=== PATIENT | female | born 1935 | race Caucasian/White ===

== ENCOUNTER 2021-11-15 12:43 | Inpatient (IN) | payer MEDICARE, OTHER ==
[2021-11-15] MEDS ORDERED: levETIRAcetam 500 MG/5 ML VIAL ONE (12:59)
[2021-11-15 13:00] LABS: Hemoglobin 10.8 g/dL (12.0-16.0); Mean Corpuscular HGB CONC 31.5 g/dL (32.0-36.0); Mean Corpuscular Hemoglobin 28.2 pg (27.0-31.0); Mean Corpuscular Volume 89.4 fL (78.0-98.0); Mean Platelet Volume 9.5 fL (7.4-10.4); Platelet Count 236 thou/uL (130-400); RBC Distribution Width 15.8 % (11.5-14.5); Red Blood Cell (RBC) Count 3.83 mill/uL (4.20-5.40); White Blood Cell (WBC) Count 20.5 thou/uL (4.8-10.8)
[2021-11-15 13:05] LABS: INR-International Normal Ratio 1.1; Prothrombin Time 14.2 sec (12.0-14.7)
[2021-11-15 13:21] LABS: Anisocytosis SLIGHT = 6-15 cells (100X) (0-5/hpf); Band 26 % (5-11); Eosinophils 2 % (0-10); Lymphocytes 6 % (21-51); MDiff Complete? YES; Monocytes 2 % (0-10); Neutrophil 64 % (42-75); Platelet Morphology Comment Appears Adequate; Polychromasia SLIGHT = 2-3 cells (100X) (0-2/hpf)
[2021-11-15 13:22] LABS: ALT (SGPT) 9 U/L (8-55); AST (SGOT) 6 U/L (5-34); Albumin 3.7 g/dL (3.4-4.8); Alkaline Phosphatase 102 U/L (40-110); Anion Gap 17 mmol/L (10-20); BUN (Urea Nitrogen) 41 mg/dL (9.8-20.1); Bilirubin, Total 0.2 mg/dL (0.2-1.2); CK (CPK) 12 U/L (29-168); Calc. Creatinine Clearance 0 mL/min (70-130); Calcium 10.3 mg/dL (7.8-10.44); Carbon Dioxide 16 mmol/L (23-31); Chloride 114 mmol/L (98-107); Estimated GFR 33; Globulin 2.9 g/dL (2.4-3.5); Glucose 178 mg/dL (83-110); Magnesium 2.6 mg/dL (1.6-2.6); Potassium 3.9 mmol/L (3.5-5.1); Protein, Total 6.6 g/dL (5.8-8.1); Sodium 143 mmol/L (136-145)
[2021-11-15 13:51] LABS: Bacteria/HPF 2+ HPF (None Seen); Bilirubin Negative (Negative); Blood, Urine 2+ (Negative); Clarity Extra Turbid (Clear); Glucose, Urine (Dipstick) Greater than 1000 mg/dL (Negative); Ketone, Urine Negative (Negative); Leukocyte 500 Leu/uL (Negative); Nitrite 1+ (Negative); Protein, Urine (Dipstick) 100 mg/dL (Neg-Trace); Specific Gravity, Urine 1.014 (1.002-1.036); Squamous Epithelial 0-3 HPF (0-3); Urobilinogen Normal mg/dL (Less than 2); pH, Urine 6.5 (5.0-9.0)
[2021-11-15 13:52] LABS: Yeast-Budding Rare HPF (None Seen)
[2021-11-15 13:53] LABS: WBC/HPF Greater Than 50 HPF (0-3)
[2021-11-15] MEDS ORDERED: Cefepime 2 GM VIAL ONE (14:09)
[2021-11-15] MEDS ORDERED: Vancomycin 1 GM/200 ML BAG ONE (15:11)
[2021-11-15] MEDS ORDERED: Naloxone HCl 0.4 mg/ml Vial ONE ×2 (15:37→15:46)
[2021-11-15 16:11] LABS: Actual Bicarbonate (HCO3a) 15.8 mEq/L (22-28); Analyzer IN Cardio ER; Base Excess (BEa) -10.2 mEq/L (-2.0 to +3.0); CO2 Tension 35.3 mmHg (35.0-45.0); Calcium, Ionized (arterial) 1.39 mmol/L (1.12-1.30); Carboxyhemoglobin (COHb) 0.6 gm% (0.0-3.0); Hemoglobin (Hb) 9.9 g/dL (12.0-16.0); O2 Tension (PaO2), arterial 84.2 mmHg (> 60.0); Potassium - ABG Lab 3.47 mmol/L (3.70-5.30); pH, Arterial 7.27 (7.35-7.45)
[2021-11-15 16:24] LABS: Acetaminophen Less than 10.0 mcg/mL (10.0-30.0); Alcohol Less than 10 mg/dL (Less than 10); Salicylate Less than 8.0 mg/dL (15.0-30.0)
[2021-11-15 16:31] LABS: Puncture Site RRA
[2021-11-15 16:39] LABS: Amphetamine Not Detected (NotDetected); Barbiturates Screen Not Detected (NotDetected); Benzodiazepine Screen Not Detected (NotDetected); Cocaine Metabolite Screen Not Detected (NotDetected); Methadone Not Detected (NotDetected); Methamphetamine Not Detected (NotDetected); Opiate Screen Not Detected (NotDetected); Oxycodone Screen Not Detected (NotDetected); Phencyclidine (PCP) Not Detected (NotDetected); THC/Cannabinoid Screen Not Detected (NotDetected); Tricyclic Screen Not Detected (NotDetected)
[2021-11-15] MEDS ORDERED: Ondansetron PF 4 MG/2 ML Vial IVP PRN (17:15)
[2021-11-15 17:35] LABS: Troponin I Less than 0.010 ng/mL (< 0.028)
[2021-11-15 21:16] LABS: Troponin I Less than 0.010 ng/mL (< 0.028)
[2021-11-15] MEDS: Sodium Chloride 0.9% 1,000 ML IV SCH (21:49)
[2021-11-15] MEDS: Famotidine/PF 20 mg/2ml Vial SLOW IVP SCH (21:49)
[2021-11-16] MEDS: Cefepime 1 GM in Sodium Chloride 0.9% 100 ML IVPB SCH ×2 (01:58→14:16)
[2021-11-16 05:47] LABS: #Eosinphils 0.2 thou/uL (0.0-0.7); #Lymphocytes 0.7 thou/uL (1.20-3.40); #Monocytes 0.4 thou/uL (0.11-0.59); #Neutrophils 12.9 thou/uL (1.40-6.50); %Basophils 0.1 % (0.0-1.0); %Eosinophils 1.2 % (0.0-10.0); %Lymphocytes 4.6 % (21.0-51.0); %Monocytes 2.8 % (0.0-10.0); %Neutrophils 91.2 % (42.0-75.0); Hemoglobin 11.5 g/dL (12.0-16.0); Mean Corpuscular HGB CONC 29.1 g/dL (32.0-36.0); Mean Corpuscular Hemoglobin 26.8 pg (27.0-31.0); Mean Corpuscular Volume 92.2 fL (78.0-98.0); Mean Platelet Volume 10.2 fL (7.4-10.4); Platelet Count 166 thou/uL (130-400); RBC Distribution Width 16.3 % (11.5-14.5); Red Blood Cell (RBC) Count 4.28 mill/uL (4.20-5.40); White Blood Cell (WBC) Count 14.1 thou/uL (4.8-10.8)
[2021-11-16 06:01] LABS: Anion Gap 17 mmol/L (10-20); BUN (Urea Nitrogen) 28 mg/dL (9.8-20.1); Calc. Creatinine Clearance 37 mL/min (70-130); Carbon Dioxide 12 mmol/L (23-31); Chloride 120 mmol/L (98-107); Estimated GFR 55; Glucose 164 mg/dL (83-110); Potassium 4.6 mmol/L (3.5-5.1); Sodium 144 mmol/L (136-145)
[2021-11-16] MEDS: Enoxaparin Sodium 30 MG/0.3 ML SYRINGE SC SCH (09:31)
[2021-11-16] MEDS: Sodium Chloride 0.9% 1,000 ML IV SCH ×2 (09:31→22:31)
[2021-11-16] MEDS ORDERED: Losartan 25 MG TAB PO SCH (12:15)
[2021-11-16] MEDS: Famotidine/PF 20 mg/2ml Vial SLOW IVP SCH (22:31)
[2021-11-17] MEDS: Cefepime 1 GM in Sodium Chloride 0.9% 100 ML IVPB SCH ×2 (02:11→13:54)
[2021-11-17 06:23] LABS: Hemoglobin 11.5 g/dL (12.0-16.0); Mean Corpuscular HGB CONC 30.4 g/dL (32.0-36.0); Mean Corpuscular Hemoglobin 27.3 pg (27.0-31.0); Mean Corpuscular Volume 89.6 fL (78.0-98.0); Mean Platelet Volume 9.4 fL (7.4-10.4); Platelet Count 261 thou/uL (130-400); RBC Distribution Width 15.7 % (11.5-14.5); Red Blood Cell (RBC) Count 4.23 mill/uL (4.20-5.40); White Blood Cell (WBC) Count 16.4 thou/uL (4.8-10.8)
[2021-11-17 06:34] LABS: ALT (SGPT) 14 U/L (8-55); AST (SGOT) 15 U/L (5-34); Albumin 3.6 g/dL (3.4-4.8); Alkaline Phosphatase 109 U/L (40-110); Anion Gap 20 mmol/L (10-20); BUN (Urea Nitrogen) 17 mg/dL (9.8-20.1); Bilirubin, Total 0.3 mg/dL (0.2-1.2); Calc. Creatinine Clearance 46 mL/min (70-130); Carbon Dioxide 11 mmol/L (23-31); Chloride 114 mmol/L (98-107); Estimated GFR 70; Globulin 3.9 g/dL (2.4-3.5); Glucose 117 mg/dL (83-110); Potassium 3.6 mmol/L (3.5-5.1); Protein, Total 7.5 g/dL (5.8-8.1); Sodium 141 mmol/L (136-145)
[2021-11-17 07:57] LABS: #Eosinphils 0.1 thou/uL (0.0-0.7); #Lymphocytes 1.1 thou/uL (1.20-3.40); #Monocytes 0.6 thou/uL (0.11-0.59); #Neutrophils 14.5 thou/uL (1.40-6.50); %Basophils 0.3 % (0.0-1.0); %Eosinophils 0.7 % (0.0-10.0); %Lymphocytes 6.6 % (21.0-51.0); %Monocytes 3.7 % (0.0-10.0); %Neutrophils 88.7 % (42.0-75.0); Band 6 % (5-11); Eosinophils 1 % (0-10); Large Platelets SLIGHT; Lymphocytes 6 % (21-51); MDiff Complete? YES; Monocytes 6 % (0-10); Neutrophil 81 % (42-75); Platelet Morphology Comment Appears Adequate; Polychromasia SLIGHT = 2-3 cells (100X) (0-2/hpf)
[2021-11-17] MEDS ORDERED: Atorvastatin Calcium 20 MG TAB PO SCH (09:00)
[2021-11-17] MEDS ORDERED: Enoxaparin Sodium 40 MG/0.4 ML SYRINGE SC SCH (09:30)
[2021-11-17] MEDS: Losartan 25 MG TAB PO SCH (10:09)
[2021-11-17] MEDS: Empagliflozin 25 MG TAB PO SCH (10:11)
[2021-11-17] MEDS: Enoxaparin Sodium 30 MG/0.3 ML SYRINGE SC SCH (13:57)
[2021-11-17] MEDS: Sodium Chloride 0.9% 1,000 ML IV SCH (15:00)
[2021-11-17] MEDS ORDERED: Melatonin 3 MG TAB PO PRN (20:00)
[2021-11-17] MEDS: Melatonin 3 MG TAB PO PRN (22:19)
[2021-11-17] MEDS: Atorvastatin Calcium 20 MG TAB PO SCH (22:20)
[2021-11-17] MEDS: Famotidine/PF 20 mg/2ml Vial SLOW IVP SCH (22:20)
[2021-11-18] MEDS: Cefepime 1 GM in Sodium Chloride 0.9% 100 ML IVPB SCH ×2 (02:08→14:01)
[2021-11-18] MEDS: Sodium Chloride 0.9% 1,000 ML IV SCH (06:17)
[2021-11-18 07:29] LABS: Hemoglobin 11.3 g/dL (12.0-16.0); Mean Corpuscular HGB CONC 29.6 g/dL (32.0-36.0); Mean Corpuscular Hemoglobin 26.7 pg (27.0-31.0); Mean Corpuscular Volume 90.4 fL (78.0-98.0); Mean Platelet Volume 9.5 fL (7.4-10.4); Platelet Count 308 thou/uL (130-400); RBC Distribution Width 15.7 % (11.5-14.5); Red Blood Cell (RBC) Count 4.23 mill/uL (4.20-5.40); White Blood Cell (WBC) Count 15.1 thou/uL (4.8-10.8)
[2021-11-18] MEDS: Empagliflozin 25 MG TAB PO SCH (07:51)
[2021-11-18] MEDS: Enoxaparin Sodium 40 MG/0.4 ML SYRINGE SC SCH (07:51)
[2021-11-18] MEDS: Losartan 25 MG TAB PO SCH (07:51)
[2021-11-18 07:57] LABS: Anion Gap 22 mmol/L (10-20); BUN (Urea Nitrogen) 15 mg/dL (9.8-20.1); Calc. Creatinine Clearance 51 mL/min (70-130); Calcium 10.3 mg/dL (7.8-10.44); Chloride 114 mmol/L (98-107); Estimated GFR 85; Glucose 130 mg/dL (83-110); Magnesium 2.2 mg/dL (1.6-2.6); Potassium 3.6 mmol/L (3.5-5.1); Sodium 141 mmol/L (136-145)
[2021-11-18 08:03] LABS: Carbon Dioxide 9 mmol/L (23-31)
[2021-11-18 08:25] LABS: Band 4 % (5-11); Lymphocytes 10 % (21-51); MDiff Complete? YES; Monocytes 5 % (0-10); Neutrophil 81 % (42-75); Platelet Morphology Comment Appears Adequate; Polychromasia SLIGHT = 2-3 cells (100X) (0-2/hpf)
[2021-11-18] MEDS: Sodium Bicarb 50 MEQ/50 ML VIAL IVP SCH ×3 (14:01→21:25)
[2021-11-18] MEDS: Mirtazapine 30 MG TAB PO PRN (21:24)
[2021-11-18] MEDS: Melatonin 3 MG TAB PO PRN (21:24)
[2021-11-18] MEDS: Atorvastatin Calcium 20 MG TAB PO SCH (21:24)
[2021-11-18] MEDS: Famotidine/PF 20 mg/2ml Vial SLOW IVP SCH (21:24)
[2021-11-18] MEDS ORDERED: traZODone HCl 50 MG TAB PO SCH (23:15)
[2021-11-19] MEDS: Cefepime 1 GM in Sodium Chloride 0.9% 100 ML IVPB SCH ×2 (03:24→14:16)
[2021-11-19 04:13] LABS: #Eosinphils 0.1 thou/uL (0.0-0.7); #Lymphocytes 1.4 thou/uL (1.20-3.40); #Monocytes 0.7 thou/uL (0.11-0.59); #Neutrophils 11.5 thou/uL (1.40-6.50); %Basophils 0.3 % (0.0-1.0); %Eosinophils 1.1 % (0.0-10.0); %Lymphocytes 9.9 % (21.0-51.0); %Monocytes 5.2 % (0.0-10.0); %Neutrophils 83.5 % (42.0-75.0); Hemoglobin 11.5 g/dL (12.0-16.0); Mean Corpuscular HGB CONC 31.5 g/dL (32.0-36.0); Mean Corpuscular Hemoglobin 27.7 pg (27.0-31.0); Mean Platelet Volume 9.4 fL (7.4-10.4); Platelet Count 374 thou/uL (130-400); RBC Distribution Width 15.7 % (11.5-14.5); Red Blood Cell (RBC) Count 4.14 mill/uL (4.20-5.40); White Blood Cell (WBC) Count 13.7 thou/uL (4.8-10.8)
[2021-11-19 04:40] LABS: ALT (SGPT) 34 U/L (8-55); AST (SGOT) 27 U/L (5-34); Albumin 3.8 g/dL (3.4-4.8); Alkaline Phosphatase 116 U/L (40-110); Anion Gap 23 mmol/L (10-20); BUN (Urea Nitrogen) 15 mg/dL (9.8-20.1); Bilirubin, Total 0.3 mg/dL (0.2-1.2); Calc. Creatinine Clearance 48 mL/min (70-130); Calcium 10.3 mg/dL (7.8-10.44); Carbon Dioxide 15 mmol/L (23-31); Chloride 108 mmol/L (98-107); Estimated GFR 78; Globulin 3.7 g/dL (2.4-3.5); Glucose 132 mg/dL (83-110); Magnesium 2.3 mg/dL (1.6-2.6); Protein, Total 7.5 g/dL (5.8-8.1); Sodium 143 mmol/L (136-145)
[2021-11-19 04:53] LABS: Potassium 2.8 mmol/L (3.5-5.1)
[2021-11-19] MEDS ORDERED: Electrolyte Replacement Protocol 1 EACH FS SCH (05:00)
[2021-11-19] MEDS: Potassium Chloride 20 MEQ in Premix Bag 1 BAG IVPB SCH ×2 (06:26→10:18)
[2021-11-19] MEDS: Losartan 25 MG TAB PO SCH (10:17)
[2021-11-19] MEDS: Empagliflozin 25 MG TAB PO SCH (10:17)
[2021-11-19] MEDS: Enoxaparin Sodium 40 MG/0.4 ML SYRINGE SC SCH (10:18)
[2021-11-19] MEDS ORDERED: Diltiazem HCl SR 60 mg Capsule PO SCH (12:30)
[2021-11-19] MEDS ORDERED: Potassium Chloride 20 MEQ TAB PO SCH (12:30)
[2021-11-19] MEDS ORDERED: Sodium Bicarb 50 MEQ/50 ML VIAL IVP SCH (12:30)
[2021-11-19] MEDS: Sodium Bicarb 50 MEQ/50 ML Abboject 8.4% SYRINGE IVP SCH ×3 (14:04→21:11)
[2021-11-19] MEDS: D5W-AA 4.25% with LYTES 1,000 ML IV SCH (15:20)
[2021-11-19 17:42] LABS: Magnesium 2.2 mg/dL (1.6-2.6); Potassium 3.6 mmol/L (3.5-5.1)
[2021-11-19] MEDS: Famotidine/PF 20 mg/2ml Vial SLOW IVP SCH ×2 (21:04→21:11)
[2021-11-19] MEDS: Atorvastatin Calcium 20 MG TAB PO SCH (21:12)
[2021-11-19] MEDS: Melatonin 3 MG TAB PO PRN (21:12)
[2021-11-19] MEDS: Mirtazapine 30 MG TAB PO PRN (21:12)
[2021-11-19] MEDS ORDERED: hydrOXYzine 25 MG TAB PO SCH (23:15)
[2021-11-20] MEDS: Cefepime 1 GM in Sodium Chloride 0.9% 100 ML IVPB SCH ×2 (01:26→16:21)
[2021-11-20] MEDS: D5W-AA 4.25% with LYTES 1,000 ML IV SCH ×2 (02:12→14:30)
[2021-11-20 04:37] LABS: #Eosinphils 0.1 thou/uL (0.0-0.7); #Lymphocytes 1.2 thou/uL (1.20-3.40); #Monocytes 1.1 thou/uL (0.11-0.59); #Neutrophils 10.7 thou/uL (1.40-6.50); %Basophils 0.2 % (0.0-1.0); %Lymphocytes 8.9 % (21.0-51.0); %Monocytes 8.1 % (0.0-10.0); %Neutrophils 81.9 % (42.0-75.0); Hemoglobin 10.2 g/dL (12.0-16.0); Mean Corpuscular HGB CONC 31.1 g/dL (32.0-36.0); Mean Corpuscular Hemoglobin 27.2 pg (27.0-31.0); Mean Corpuscular Volume 87.5 fL (78.0-98.0); Mean Platelet Volume 9.3 fL (7.4-10.4); Platelet Count 356 thou/uL (130-400); RBC Distribution Width 15.8 % (11.5-14.5); Red Blood Cell (RBC) Count 3.75 mill/uL (4.20-5.40); White Blood Cell (WBC) Count 13.1 thou/uL (4.8-10.8)
[2021-11-20 04:56] LABS: ALT (SGPT) 27 U/L (8-55); AST (SGOT) 14 U/L (5-34); Albumin 3.5 g/dL (3.4-4.8); Alkaline Phosphatase 92 U/L (40-110); Anion Gap 15 mmol/L (10-20); BUN (Urea Nitrogen) 23 mg/dL (9.8-20.1); Bilirubin, Total 0.2 mg/dL (0.2-1.2); Calc. Creatinine Clearance 48 mL/min (70-130); Calcium 10.2 mg/dL (7.8-10.44); Carbon Dioxide 24 mmol/L (23-31); Chloride 110 mmol/L (98-107); Estimated GFR 76; Globulin 3.2 g/dL (2.4-3.5); Glucose 240 mg/dL (83-110); Magnesium 2.3 mg/dL (1.6-2.6); Phosphorus 2.1 mg/dL (2.3-4.7); Potassium 3.6 mmol/L (3.5-5.1); Protein, Total 6.7 g/dL (5.8-8.1); Sodium 145 mmol/L (136-145)
[2021-11-20] MEDS ORDERED: Potassium Chloride 20 MEQ TAB PO SCH (08:00)
[2021-11-20] MEDS: Losartan 25 MG TAB PO SCH (10:47)
[2021-11-20] MEDS: Enoxaparin Sodium 40 MG/0.4 ML SYRINGE SC SCH (10:48)
[2021-11-20] MEDS: Empagliflozin 25 MG TAB PO SCH (10:48)
[2021-11-20] MEDS: Diltiazem HCl CD 300 mg Capsule PO SCH (10:50)
[2021-11-20 18:21] LABS: Bilirubin Negative (Negative); Blood, Urine 3+ (Negative); Clarity Turbid (Clear); Glucose, Urine (Dipstick) Greater than 1000 mg/dL (Negative); Ketone, Urine 10 mg/dL (Negative); Leukocyte 500 Leu/uL (Negative); Nitrite Negative (Negative); Protein, Urine (Dipstick) 70 mg/dL (Neg-Trace); RBC/HPF Greater than 50 HPF (0-3); Specific Gravity, Urine 1.025 (1.002-1.036); Squamous Epithelial 0-3 HPF (0-3); Urobilinogen Normal mg/dL (Less than 2); WBC/HPF Greater than 50 HPF (0-3)
[2021-11-20 18:23] LABS: Bacteria/HPF Rare-Few HPF (None Seen); Transitional Epithelial 0-3 HPF (None Seen)
[2021-11-20 18:24] LABS: Urine Culture Reflex Yes Yes
[2021-11-20] MEDS: Famotidine/PF 20 mg/2ml Vial SLOW IVP SCH ×2 (20:22→20:23)
[2021-11-20] MEDS: Atorvastatin Calcium 20 MG TAB PO SCH (20:31)
[2021-11-20] MEDS ORDERED: hydrOXYzine 25 MG TAB PO SCH (21:10)
[2021-11-20] MEDS ORDERED: OLANZapine 10 MG VIAL IM SCH (21:30)
[2021-11-21] MEDS: Cefepime 1 GM in Sodium Chloride 0.9% 100 ML IVPB SCH ×2 (02:21→15:20)
[2021-11-21] MEDS: D5W-AA 4.25% with LYTES 1,000 ML IV SCH ×2 (02:21→15:21)
[2021-11-21 04:25] LABS: #Eosinphils 0.1 thou/uL (0.0-0.7); #Lymphocytes 1.1 thou/uL (1.20-3.40); #Monocytes 0.9 thou/uL (0.11-0.59); %Basophils 0.2 % (0.0-1.0); %Eosinophils 0.5 % (0.0-10.0); %Lymphocytes 7.8 % (21.0-51.0); %Monocytes 6.5 % (0.0-10.0); Hemoglobin 9.7 g/dL (12.0-16.0); Mean Corpuscular HGB CONC 31.8 g/dL (32.0-36.0); Mean Corpuscular Hemoglobin 27.8 pg (27.0-31.0); Mean Corpuscular Volume 87.3 fL (78.0-98.0); Mean Platelet Volume 9.3 fL (7.4-10.4); Platelet Count 347 thou/uL (130-400); RBC Distribution Width 16.1 % (11.5-14.5); Red Blood Cell (RBC) Count 3.51 mill/uL (4.20-5.40); White Blood Cell (WBC) Count 14.1 thou/uL (4.8-10.8)
[2021-11-21 04:47] LABS: Anion Gap 15 mmol/L (10-20); BUN (Urea Nitrogen) 33 mg/dL (9.8-20.1); Calc. Creatinine Clearance 44 mL/min (70-130); Calcium 10.2 mg/dL (7.8-10.44); Carbon Dioxide 22 mmol/L (23-31); Chloride 114 mmol/L (98-107); Estimated GFR 68; Glucose 243 mg/dL (83-110); Magnesium 2.7 mg/dL (1.6-2.6); Potassium 4.1 mmol/L (3.5-5.1); Sodium 147 mmol/L (136-145)
[2021-11-21] MEDS ORDERED: Iopamidol-370 76% 500 ML 1 ML ONE (09:52)
[2021-11-21] MEDS: Losartan 25 MG TAB PO SCH (09:57)
[2021-11-21] MEDS: Diltiazem HCl CD 300 mg Capsule PO SCH (09:57)
[2021-11-21] MEDS: Empagliflozin 25 MG TAB PO SCH (09:57)
[2021-11-21] MEDS: Enoxaparin Sodium 40 MG/0.4 ML SYRINGE SC SCH (10:00)
[2021-11-21] MEDS ORDERED: Meropenem 500 MG in Sodium Chloride 0.9% 100 ML IVPB SCH (16:00)
[2021-11-21] MEDS ORDERED: Meropenem 1 GM in Sodium Chloride 0.9% 100 ML IVPB SCH (16:00)
[2021-11-21] MEDS: Dextrose 5% in Water 1,000 ML IV SCH (17:51)
[2021-11-21] MEDS: Atorvastatin Calcium 20 MG TAB PO SCH (21:42)
[2021-11-21] MEDS: Meropenem 1 GM in Sodium Chloride 0.9% 100 ML IVPB SCH (23:48)
[2021-11-22 04:47] LABS: #Eosinphils 0.1 thou/uL (0.0-0.7); #Monocytes 0.9 thou/uL (0.11-0.59); %Basophils 0.2 % (0.0-1.0); %Eosinophils 1.2 % (0.0-10.0); %Lymphocytes 7.9 % (21.0-51.0); %Monocytes 7.3 % (0.0-10.0); %Neutrophils 83.3 % (42.0-75.0); Hemoglobin 9.7 g/dL (12.0-16.0); Mean Corpuscular HGB CONC 31.2 g/dL (32.0-36.0); Mean Corpuscular Hemoglobin 27.5 pg (27.0-31.0); Mean Corpuscular Volume 88.3 fL (78.0-98.0); Mean Platelet Volume 9.3 fL (7.4-10.4); Platelet Count 345 thou/uL (130-400); RBC Distribution Width 16.2 % (11.5-14.5); Red Blood Cell (RBC) Count 3.51 mill/uL (4.20-5.40)
[2021-11-22 05:02] LABS: ALT (SGPT) 20 U/L (8-55); AST (SGOT) 11 U/L (5-34); Albumin 3.3 g/dL (3.4-4.8); Alkaline Phosphatase 74 U/L (40-110); Anion Gap 14 mmol/L (10-20); BUN (Urea Nitrogen) 31 mg/dL (9.8-20.1); Bilirubin, Total 0.2 mg/dL (0.2-1.2); Calc. Creatinine Clearance 45 mL/min (70-130); Carbon Dioxide 21 mmol/L (23-31); Chloride 112 mmol/L (98-107); Estimated GFR 69; Globulin 3.1 g/dL (2.4-3.5); Glucose 306 mg/dL (83-110); Magnesium 2.6 mg/dL (1.6-2.6); Phosphorus 3.3 mg/dL (2.3-4.7); Potassium 3.8 mmol/L (3.5-5.1); Protein, Total 6.4 g/dL (5.8-8.1); Sodium 143 mmol/L (136-145)
[2021-11-22] MEDS: Dextrose 5% in Water 1,000 ML IV SCH ×3 (07:24→20:39)
[2021-11-22] MEDS: Enoxaparin Sodium 40 MG/0.4 ML SYRINGE SC SCH (11:08)
[2021-11-22] MEDS: Empagliflozin 25 MG TAB PO SCH (12:00)
[2021-11-22] MEDS: Losartan 25 MG TAB PO SCH (12:00)
[2021-11-22] MEDS: Diltiazem HCl CD 300 mg Capsule PO SCH (12:00)
[2021-11-22] MEDS: oxyCODONE 5 MG TAB PO SCH ×2 (12:00→20:28)
[2021-11-22] MEDS: Meropenem 1 GM in Sodium Chloride 0.9% 100 ML IVPB SCH ×2 (12:37→23:28)
[2021-11-22] MEDS: D5W-AA 4.25% with LYTES 1,000 ML IV SCH (12:46)
[2021-11-22] MEDS: Atorvastatin Calcium 20 MG TAB PO SCH (20:27)
[2021-11-23 04:20] LABS: #Eosinphils 0.4 thou/uL (0.0-0.7); #Lymphocytes 1.2 thou/uL (1.20-3.40); #Monocytes 0.8 thou/uL (0.11-0.59); #Neutrophils 9.8 thou/uL (1.40-6.50); %Basophils 0.2 % (0.0-1.0); %Eosinophils 3.3 % (0.0-10.0); %Lymphocytes 10.1 % (21.0-51.0); %Monocytes 6.3 % (0.0-10.0); %Neutrophils 80.1 % (42.0-75.0); Hemoglobin 10.3 g/dL (12.0-16.0); Mean Corpuscular HGB CONC 30.9 g/dL (32.0-36.0); Mean Corpuscular Hemoglobin 27.4 pg (27.0-31.0); Mean Corpuscular Volume 88.7 fL (78.0-98.0); Mean Platelet Volume 9.4 fL (7.4-10.4); Platelet Count 348 thou/uL (130-400); RBC Distribution Width 16.1 % (11.5-14.5); Red Blood Cell (RBC) Count 3.75 mill/uL (4.20-5.40); White Blood Cell (WBC) Count 12.3 thou/uL (4.8-10.8)
[2021-11-23 04:36] LABS: Anion Gap 14 mmol/L (10-20); BUN (Urea Nitrogen) 25 mg/dL (9.8-20.1); Calc. Creatinine Clearance 47 mL/min (70-130); Calcium 9.7 mg/dL (7.8-10.44); Carbon Dioxide 20 mmol/L (23-31); Chloride 105 mmol/L (98-107); Estimated GFR 77; Glucose 318 mg/dL (83-110); Magnesium 2.2 mg/dL (1.6-2.6); Phosphorus 2.1 mg/dL (2.3-4.7); Potassium 3.9 mmol/L (3.5-5.1); Sodium 135 mmol/L (136-145)
[2021-11-23] MEDS ORDERED: Dextrose 50% Abboject 50 ML SYRINGE SLOW IVP PRN (07:42)
[2021-11-23] MEDS ORDERED: Dextrose 5% in Water 1,000 ML IV PRN (07:42)
[2021-11-23] MEDS: Enoxaparin Sodium 40 MG/0.4 ML SYRINGE SC SCH (09:18)
[2021-11-23] MEDS: HumaLOG 300 UNITS/3 ML VIAL SC PRN ×2 (09:30→17:28)
[2021-11-23] MEDS: D5W-AA 4.25% with LYTES 1,000 ML IV SCH (10:53)
[2021-11-23] MEDS ORDERED: Metoprolol Tartrate 5 MG/5 ML VIAL IVP PRN (12:01)
[2021-11-23] MEDS: Losartan 25 MG TAB PO SCH (13:39)
[2021-11-23] MEDS: Diltiazem HCl CD 300 mg Capsule PO SCH (13:39)
[2021-11-23] MEDS: Empagliflozin 25 MG TAB PO SCH (13:39)
[2021-11-23] MEDS: oxyCODONE 5 MG TAB PO SCH ×2 (13:40→23:15)
[2021-11-23] MEDS: Meropenem 1 GM in Sodium Chloride 0.9% 100 ML IVPB SCH (13:49)
[2021-11-23] MEDS: Famotidine/PF 20 mg/2ml Vial SLOW IVP SCH (23:14)
[2021-11-23] MEDS: Atorvastatin Calcium 20 MG TAB PO SCH (23:14)
[2021-11-23] MEDS: Nystatin Cream 30 GM TUBE TOP SCH (23:15)
[2021-11-24] MEDS: Meropenem 1 GM in Sodium Chloride 0.9% 100 ML IVPB SCH ×2 (02:04→19:12)
[2021-11-24 04:28] LABS: #Eosinphils 0.4 thou/uL (0.0-0.7); #Lymphocytes 1.1 thou/uL (1.20-3.40); #Monocytes 0.6 thou/uL (0.11-0.59); #Neutrophils 8.1 thou/uL (1.40-6.50); %Basophils 0.4 % (0.0-1.0); %Eosinophils 3.8 % (0.0-10.0); %Lymphocytes 10.9 % (21.0-51.0); %Monocytes 6.2 % (0.0-10.0); %Neutrophils 78.7 % (42.0-75.0); Hemoglobin 10.3 g/dL (12.0-16.0); Mean Corpuscular HGB CONC 31.2 g/dL (32.0-36.0); Mean Corpuscular Hemoglobin 28.1 pg (27.0-31.0); Mean Corpuscular Volume 90.1 fL (78.0-98.0); Mean Platelet Volume 9.7 fL (7.4-10.4); Platelet Count 350 thou/uL (130-400); RBC Distribution Width 16.3 % (11.5-14.5); Red Blood Cell (RBC) Count 3.65 mill/uL (4.20-5.40); White Blood Cell (WBC) Count 10.2 thou/uL (4.8-10.8)
[2021-11-24 04:51] LABS: Anion Gap 15 mmol/L (10-20); BUN (Urea Nitrogen) 21 mg/dL (9.8-20.1); Calc. Creatinine Clearance 49 mL/min (70-130); Carbon Dioxide 21 mmol/L (23-31); Chloride 105 mmol/L (98-107); Estimated GFR 82; Glucose 196 mg/dL (83-110); Potassium 3.8 mmol/L (3.5-5.1); Sodium 137 mmol/L (136-145)
[2021-11-24] MEDS: oxyCODONE 5 MG TAB PO SCH (09:36)
[2021-11-24] MEDS: Diltiazem HCl CD 300 mg Capsule PO SCH (09:36)
[2021-11-24] MEDS: Empagliflozin 25 MG TAB PO SCH (09:36)
[2021-11-24] MEDS: Losartan 25 MG TAB PO SCH (09:36)
[2021-11-24] MEDS ORDERED: AA 4.25 %/CALCIUM/LYTES/D5W 2,000 ML IV SCH (10:15)
[2021-11-24] MEDS: HumaLOG 300 UNITS/3 ML VIAL SC PRN (11:28)
[2021-11-24] MEDS: Enoxaparin Sodium 40 MG/0.4 ML SYRINGE SC SCH (11:31)
[2021-11-24] MEDS: Nystatin Cream 30 GM TUBE TOP SCH ×2 (11:32→21:49)
[2021-11-24] MEDS: hydrALAZINE 20 MG/ML VIAL SLOW IVP PRN (21:15)
[2021-11-24] MEDS: Famotidine/PF 20 mg/2ml Vial SLOW IVP SCH (21:15)
[2021-11-24] MEDS: Atorvastatin Calcium 20 MG TAB PO SCH (21:49)
[2021-11-25] MEDS: Meropenem 1 GM in Sodium Chloride 0.9% 100 ML IVPB SCH ×3 (00:17→23:50)
[2021-11-25 04:35] LABS: #Eosinphils 0.4 thou/uL (0.0-0.7); #Lymphocytes 1.2 thou/uL (1.20-3.40); #Monocytes 0.8 thou/uL (0.11-0.59); #Neutrophils 8.4 thou/uL (1.40-6.50); %Basophils 0.5 % (0.0-1.0); %Eosinophils 3.3 % (0.0-10.0); %Lymphocytes 11.1 % (21.0-51.0); %Monocytes 7.5 % (0.0-10.0); %Neutrophils 77.7 % (42.0-75.0); Hemoglobin 10.2 g/dL (12.0-16.0); Mean Corpuscular HGB CONC 31.2 g/dL (32.0-36.0); Mean Corpuscular Hemoglobin 27.5 pg (27.0-31.0); Mean Corpuscular Volume 88.3 fL (78.0-98.0); Mean Platelet Volume 9.6 fL (7.4-10.4); Platelet Count 367 thou/uL (130-400); RBC Distribution Width 16.4 % (11.5-14.5); Red Blood Cell (RBC) Count 3.69 mill/uL (4.20-5.40); White Blood Cell (WBC) Count 10.8 thou/uL (4.8-10.8)
[2021-11-25 04:58] LABS: Anion Gap 16 mmol/L (10-20); BUN (Urea Nitrogen) 23 mg/dL (9.8-20.1); Calc. Creatinine Clearance 44 mL/min (70-130); Calcium 10.2 mg/dL (7.8-10.44); Carbon Dioxide 20 mmol/L (23-31); Chloride 108 mmol/L (98-107); Estimated GFR 73; Glucose 178 mg/dL (83-110); Potassium 3.8 mmol/L (3.5-5.1); Sodium 140 mmol/L (136-145)
[2021-11-25] MEDS: Empagliflozin 25 MG TAB PO SCH (09:12)
[2021-11-25] MEDS: Diltiazem HCl CD 300 mg Capsule PO SCH (09:12)
[2021-11-25] MEDS: Enoxaparin Sodium 40 MG/0.4 ML SYRINGE SC SCH (09:13)
[2021-11-25] MEDS: Losartan 25 MG TAB PO SCH (09:13)
[2021-11-25] MEDS: Nystatin Cream 30 GM TUBE TOP SCH ×2 (09:14→20:30)
[2021-11-25] MEDS: hydrALAZINE 20 MG/ML VIAL SLOW IVP PRN (12:25)
[2021-11-25] MEDS: Atorvastatin Calcium 20 MG TAB PO SCH (20:21)
[2021-11-25] MEDS: Famotidine/PF 20 mg/2ml Vial SLOW IVP SCH (20:21)
[2021-11-25 23:45] LABS: Magnesium 2.4 mg/dL (1.6-2.6)
[2021-11-25 23:51] LABS: Troponin I Less than 0.010 ng/mL (< 0.028)
[2021-11-26 04:04] LABS: #Eosinphils 0.3 thou/uL (0.0-0.7); #Monocytes 0.8 thou/uL (0.11-0.59); #Neutrophils 8.5 thou/uL (1.40-6.50); %Basophils 0.2 % (0.0-1.0); %Eosinophils 2.4 % (0.0-10.0); %Lymphocytes 9.4 % (21.0-51.0); %Monocytes 7.2 % (0.0-10.0); %Neutrophils 80.7 % (42.0-75.0); Hemoglobin 9.5 g/dL (12.0-16.0); Mean Corpuscular HGB CONC 30.9 g/dL (32.0-36.0); Mean Corpuscular Hemoglobin 27.4 pg (27.0-31.0); Mean Corpuscular Volume 88.8 fL (78.0-98.0); Mean Platelet Volume 10.2 fL (7.4-10.4); Platelet Count 330 thou/uL (130-400); RBC Distribution Width 16.4 % (11.5-14.5); Red Blood Cell (RBC) Count 3.46 mill/uL (4.20-5.40); White Blood Cell (WBC) Count 10.6 thou/uL (4.8-10.8)
[2021-11-26 04:32] LABS: Anion Gap 16 mmol/L (10-20); BUN (Urea Nitrogen) 28 mg/dL (9.8-20.1); Calc. Creatinine Clearance 41 mL/min (70-130); Calcium 9.8 mg/dL (7.8-10.44); Carbon Dioxide 21 mmol/L (23-31); Chloride 109 mmol/L (98-107); Estimated GFR 68; Glucose 213 mg/dL (83-110); Magnesium 2.4 mg/dL (1.6-2.6); Potassium 3.9 mmol/L (3.5-5.1); Sodium 142 mmol/L (136-145)
[2021-11-26] MEDS: HumaLOG 300 UNITS/3 ML VIAL SC PRN ×2 (06:12→20:41)
[2021-11-26] MEDS: Diltiazem HCl CD 300 mg Capsule PO SCH ×2 (10:46→10:55)
[2021-11-26] MEDS: Nystatin Cream 30 GM TUBE TOP SCH ×2 (10:46→20:35)
[2021-11-26] MEDS: Empagliflozin 25 MG TAB PO SCH ×2 (10:46→10:55)
[2021-11-26] MEDS: Enoxaparin Sodium 40 MG/0.4 ML SYRINGE SC SCH (10:46)
[2021-11-26] MEDS: Losartan 25 MG TAB PO SCH ×2 (10:46→10:56)
[2021-11-26] MEDS: Famotidine/PF 20 mg/2ml Vial SLOW IVP SCH (20:35)
[2021-11-26] MEDS: Atorvastatin Calcium 20 MG TAB PO SCH (20:35)
[2021-11-27] MEDS: hydrALAZINE 20 MG/ML VIAL SLOW IVP PRN (00:13)
[2021-11-27] MEDS: HumaLOG 300 UNITS/3 ML VIAL SC PRN (06:19)
[2021-11-27] MEDS: Empagliflozin 25 MG TAB PO SCH (10:00)
[2021-11-27] MEDS: Diltiazem HCl CD 300 mg Capsule PO SCH (10:00)
[2021-11-27] MEDS: Enoxaparin Sodium 40 MG/0.4 ML SYRINGE SC SCH (10:00)
[2021-11-27] MEDS: Nystatin Cream 30 GM TUBE TOP SCH ×2 (10:01→21:15)
[2021-11-27] MEDS: Losartan 25 MG TAB PO SCH (10:01)
[2021-11-27 13:48] VITALS: BMI 23.3
[2021-11-27] MEDS: Acetaminophen 325 MG TAB PO PRN (14:41)
[2021-11-27] MEDS: Metoprolol Tartrate 25 MG TAB PO SCH (21:13)
[2021-11-27] MEDS: Atorvastatin Calcium 20 MG TAB PO SCH (21:13)
[2021-11-27] MEDS: Famotidine/PF 20 mg/2ml Vial SLOW IVP SCH (21:13)
[2021-11-27] MEDS ORDERED: Melatonin 3 MG TAB PO SCH (23:00)
[2021-11-28] MEDS: Enoxaparin Sodium 40 MG/0.4 ML SYRINGE SC SCH (09:03)
[2021-11-28] MEDS: Diltiazem HCl CD 300 mg Capsule PO SCH (09:03)
[2021-11-28] MEDS: Empagliflozin 25 MG TAB PO SCH (09:03)
[2021-11-28] MEDS: Losartan 25 MG TAB PO SCH (09:04)
[2021-11-28] MEDS: Metoprolol Tartrate 25 MG TAB PO SCH ×2 (09:04→21:52)
[2021-11-28] MEDS: Nystatin Cream 30 GM TUBE TOP SCH ×2 (09:04→21:52)
[2021-11-28] MEDS: Acetaminophen 325 MG TAB PO PRN (09:55)
[2021-11-28] MEDS: Melatonin 3 MG TAB PO PRN (21:50)
[2021-11-28] MEDS: Atorvastatin Calcium 20 MG TAB PO SCH (21:50)
[2021-11-28] MEDS: Famotidine 20 MG TAB PO SCH (21:50)
[2021-11-29] MEDS: Losartan 25 MG TAB PO SCH (09:35)
[2021-11-29] MEDS: Metoprolol Tartrate 25 MG TAB PO SCH ×2 (09:36→21:56)
[2021-11-29] MEDS: Diltiazem HCl CD 300 mg Capsule PO SCH (09:36)
[2021-11-29] MEDS: Enoxaparin Sodium 40 MG/0.4 ML SYRINGE SC SCH (09:36)
[2021-11-29] MEDS: Empagliflozin 25 MG TAB PO SCH (09:36)
[2021-11-29] MEDS: Nystatin Cream 30 GM TUBE TOP SCH ×2 (09:37→21:57)
[2021-11-29] MEDS: HumaLOG 300 UNITS/3 ML VIAL SC PRN (18:57)
[2021-11-29] MEDS: Famotidine 20 MG TAB PO SCH (21:56)
[2021-11-29] MEDS: Atorvastatin Calcium 20 MG TAB PO SCH (21:56)
[2021-11-29] MEDS: Melatonin 3 MG TAB PO PRN (22:04)
[2021-11-30] MEDS: Enoxaparin Sodium 40 MG/0.4 ML SYRINGE SC SCH (09:27)
[2021-11-30] MEDS: Diltiazem HCl CD 300 mg Capsule PO SCH (09:27)
[2021-11-30] MEDS: Empagliflozin 25 MG TAB PO SCH (09:27)
[2021-11-30] MEDS: Metoprolol Tartrate 25 MG TAB PO SCH ×2 (09:28→20:25)
[2021-11-30] MEDS: Losartan 25 MG TAB PO SCH (09:28)
[2021-11-30] MEDS: Nystatin Cream 30 GM TUBE TOP SCH ×2 (09:28→23:03)
[2021-11-30] MEDS: HumaLOG 300 UNITS/3 ML VIAL SC PRN (17:47)
[2021-11-30] MEDS: Famotidine 20 MG TAB PO SCH (20:25)
[2021-11-30] MEDS: Atorvastatin Calcium 20 MG TAB PO SCH (20:25)
[2021-11-30] MEDS: Melatonin 3 MG TAB PO PRN (20:51)
[2021-12-01] MEDS: Enoxaparin Sodium 40 MG/0.4 ML SYRINGE SC SCH (09:01)
[2021-12-01] MEDS: Empagliflozin 25 MG TAB PO SCH (09:01)
[2021-12-01] MEDS: Nystatin Cream 30 GM TUBE TOP SCH (09:01)
[2021-12-01] MEDS: Losartan 25 MG TAB PO SCH (09:02)
[2021-12-01] MEDS: Metoprolol Tartrate 25 MG TAB PO SCH (09:02)
[2021-12-01] MEDS: Diltiazem HCl CD 300 mg Capsule PO SCH (09:02)
[2021-12-01 15:06] VITALS: BP 137/63; TEMP 97.7
[2021-12-01] MEDS: HumaLOG 300 UNITS/3 ML VIAL SC PRN (17:38)
[2021-12-01] MEDS: Acetaminophen 325 MG TAB PO PRN (17:52)
[2021-12-01] MEDS: Melatonin 3 MG TAB PO PRN (19:51)
== END 2021-12-01 19:55 | disposition swing bed (61) | DRG 871 ==
LOC: ERS 12:43 → IMCU/EMU 16:37 → 2NO 11-19 19:23 → T4-B 11-30 11:34
PROVIDERS: ADMIT Internal Medicine; ATTEND Internal Medicine
DX: A41.52 Sepsis due to Pseudomonas (principal); G93.41 Metabolic encephalopathy; N39.0 Urinary tract infection, site not specified; E87.2 Acidosis; I47.1 Supraventricular tachycardia; Z51.5 Encounter for palliative care; R65.20 Severe sepsis without septic shock; F03.90 Unspecified dementia, unspecified severity, without behavioral disturbance, psychotic disturbance, mood disturbance, and anxiety; R29.810 Facial weakness; I10 Essential (primary) hypertension; E78.5 Hyperlipidemia, unspecified; G89.4 Chronic pain syndrome; R53.81 Other malaise; R31.9 Hematuria, unspecified; M54.9 Dorsalgia, unspecified; E23.6 Other disorders of pituitary gland; Z20.822 Contact with and (suspected) exposure to COVID-19; Z98.890 Other specified postprocedural states; Z90.710 Acquired absence of both cervix and uterus; Z90.49 Acquired absence of other specified parts of digestive tract; Z90.89 Acquired absence of other organs; Z79.899 Other long term (current) drug therapy
CPT/HCPCS: 36415; 36416; 36600; 70450; 70551; 71045; 71260; 74177; 80048; 80053; 80306; 80307; 81001; 81003; 81015; 82550; 82805; 83605; 83735; 84100; 84146; 84443; 84484; 85025; 85610; 85730; 87040; 87077; 87086; 87186; 93005; 93010; 95712; 95819; 95957; 96374; 96375; J0360; J0692; J1650; J1815; J1953; J2185; J2310; J2358; J3370; J3480; J3490; J7050; J7070; Q9967; S0028; U0003; U0005